=== PATIENT | female | born 1970 | race African-American/Black ===

== ENCOUNTER 2021-11-16 10:29 | Emergency (ER) | payer OTHER ==
[2021-11-16 10:37] VITALS: BP 158/85; PULSE 50; TEMP 98.1; BMI 30.7
== END 2021-11-16 12:13 | disposition home or self-care (01) ==
LOC: JER 10:29
DX: F07.81 Postconcussional syndrome (principal); W22.8XXA Striking against or struck by other objects, initial encounter
CPT/HCPCS: 99281-25

== ENCOUNTER 2022-08-31 19:47 | Emergency (ER) | payer OTHER ==
[2022-08-31 19:58] VITALS: TEMP 98.2; BMI 29.0
[2022-08-31] MEDS ORDERED: CYCLOBENZAPRINE HCL 10 MG TABLET (FP) PO ONE (21:10)
[2022-08-31] MEDS ORDERED: KETOROLAC TROMETHAMINE 30 MG/1 ML VIAL IM ONE (21:10)
[2022-08-31] MEDS ORDERED: CYCLOBENZAPRINE HCL 10 MG TABLET (FP) ONE (21:24)
[2022-08-31] MEDS ORDERED: KETOROLAC TROMETHAMINE 30 MG/1 ML VIAL ONE (21:24)
[2022-08-31] MEDS ORDERED: LIDOCAINE 5% TOPICAL PATCH ONE (21:24)
[2022-08-31] MEDS ORDERED: LIDOCAINE 5% TOPICAL PATCH TP ONE (21:30)
[2022-08-31 21:52] VITALS: BP 138/80; PULSE 55; RESP 18
[2022-09-01] MEDS ORDERED: LIDOCAINE PATCH REMOVAL MC SCH (10:00)
== END 2022-08-31 22:08 | disposition home or self-care (01) ==
LOC: JER 19:47
PROC: 3E0233Z Introduction of Anti-inflammatory into Muscle, Percutaneous Approach (ICD-10-PCS; principal; 2022-08-31)
DX: M54.2 Cervicalgia (principal); V43.62XA Car passenger injured in collision with other type car in traffic accident, initial encounter
CPT/HCPCS: 99284-25

== ENCOUNTER 2023-07-22 04:08 | Day surgery (SDC) | payer OTHER ==
[2023-07-18 12:06] VITALS: BMI 33.0
[2023-07-22 07:32] VITALS: RESP 20
[2023-07-22] MEDS ORDERED: MIDAZOLAM HCL 2 MG/2 ML SINGLE DOSE VIAL ONE (10:24)
[2023-07-22] MEDS ORDERED: FENTANYL CITRATE/PF 50 MCG/ML VIAL ONE (10:26)
[2023-07-22] MEDS ORDERED: ONDANSETRON 4 MG/2 ML VIAL ONE (10:27)
[2023-07-22] MEDS ORDERED: LIDOCAINE HCL 1% PRESERVATIVE FREE - 30ML VIAL IJ ONE (10:35)
[2023-07-22] MEDS ORDERED: BUPIVACAINE HCL 0.25% 125 MG/50 ML VIAL NR ONE (10:35)
[2023-07-22] MEDS ORDERED: DEXAMETHASONE SOD PHOSPHATE 10 MG/1 ML VIAL IVPUSH ONE (10:35)
[2023-07-22] MEDS ORDERED: IOHEXOL 180 MG/1 ML ML IJ ONE (10:35)
[2023-07-22 15:33] VITALS: TEMP 97.3
[2023-07-22 15:35] VITALS: BP 125/72; PULSE 58
== END 2023-07-22 15:36 | disposition home or self-care (01) ==
LOC: JASU-SURG 04:08
PROVIDERS: ATTEND Physical Medicine & Rehabilitation
PROC: 3E0R3BZ Introduction of Anesthetic Agent into Spinal Canal, Percutaneous Approach (ICD-10-PCS; 2023-07-22)
PROC: 3E0R33Z Introduction of Anti-inflammatory into Spinal Canal, Percutaneous Approach (ICD-10-PCS; principal; 2023-07-22 09:30)
DX: M54.16 Radiculopathy, lumbar region (principal); M54.50 Low back pain, unspecified
CPT/HCPCS: 76000-TC-FY; 82962; J1100

== ENCOUNTER 2025-01-23 14:04 | Emergency (ER) | payer OTHER ==
[2025-01-23 14:10] VITALS: BP 127/82; PULSE 71; RESP 18; TEMP 98; BMI 30.7
[2025-01-23] MEDS ORDERED: DEXAMETHASONE SOD PHOSPHATE 10 MG/1 ML VIAL ONE (14:57)
[2025-01-23] MEDS: DEXAMETHASONE SOD PHOSPHATE 10 MG/1 ML VIAL IM ONE (14:58)
[2025-01-23] MEDS: PSEUDOEPHEDRINE HCL 60 MG TABLET PO ONE (15:11)
== END 2025-01-23 15:41 | disposition home or self-care (01) ==
LOC: JERFT 14:04
PROC: 3E033GC Introduction of Other Therapeutic Substance into Peripheral Vein, Percutaneous Approach (ICD-10-PCS; principal; 2025-01-23)
DX: J30.2 Other seasonal allergic rhinitis (principal); R09.81 Nasal congestion; R05.9 Cough, unspecified; R09.82 Postnasal drip
CPT/HCPCS: 99284-25; J1100